=== PATIENT | female | born 1955 | race Caucasian/White ===

== ENCOUNTER 2017-06-02 11:14 | Day surgery (SDC) | payer OTHER ==
[~2017-06-02 11:14] MED LIST: LR 1,000 ML IV ONE
--- NOTE | 2017-06-02 11:54 | PDANEPAE ---
ANE History of Present Illness hx. polyps s/f colonscopy ANE Past Medical History - Cardiovascular History Hx Hypertension: No Hx Arrhythmias: No Hx Chest Pain: No Hx Coronary Artery / Peripheral Vascular Disease: No Hx CHF / Valvular Disease: No Hx Palpitations: No - Pulmonary History Hx COPD: No Hx Asthma/Reactive Airway Disease: No Hx Recent Upper Respiratory Infection: No Hx Oxygen in Use at Home: No Hx Sleep Apnea: No Sleep Apnea Screening Result - Last Documented: Negative Pulmonary History Comment: hx of pato- pt denies any pulmonary issues today - Neurologic History Hx Cerebrovascular Accident: No Hx Seizures: No Hx Dementia: No - Endocrine History Hx Diabetes: No - Renal History Hx Renal Disorders: No - Liver History Hx Hepatic Disorders: No - Neurological & Psychiatric Hx Hx Neurological and Psychiatric Disorders: No - Cancer History Hx Cancer: Yes Cancer History Comment: BASAL CELL REMOVED FACE - Congenital Disorder History Hx Congenital Disorders: No - GI History Hx Gastrointestinal Disorders: Yes Gastrointestinal History Comment: REMVL COLON POLYP. hx of colonoscopies - Other Health History Other Health History: none - Chronic Pain History Chronic Pain: No - Surgical History Prior Surgeries: COLONOSCOPY. eye surgery when she was young ANE Review of Systems Review of Systems: - Exercise capacity METS (RN): 4 METS ANE Patient History - Allergies Allergies/Adverse Reactions: amoxicillin trihydrate [From Augmentin] Allergy (Verified 05/20/17 11:57) extremely sick, n/v/d latex Allergy (Verified 05/20/17 11:57) breakout into hives potassium clavulanate [From Augmentin] Allergy (Verified 05/20/17 11:57) extremely sick, n/v/d - Home Medications Home medications: home medication list seen and reviewed Home Medications: Herbals/Supplements -Info Only 05/20/17 [Last Taken 05/25/17] - NPO status NPO Status: no food or drink >8 hours NPO Since - Liquids (Date): 06/01/17 NPO Since - Liquids (Time): 17:00 NPO Since - Solids (Date): 06/01/17 NPO Since - Solids (Time): 17:00 - Anes Hx Anes Hx: no prior problems (woke up with conscious sedation) - Smoking Hx Smoking Status: Heavy smoker Marijuana use: No - Alcohol Use Alcohol Use: Rarely - Family Anes Hx Family Hx Anesthesia Complications: PARENTS BOTH SLOW TO AWAKEN FROM ANESTH ANE Labs/Vital Signs - Vital Signs Height: 152.4 cm Weight: 68.039 kg ANE Physical Exam - Airway Mallampati Score: Class 1 Mouth exam: poor dentition - Pulmonary Pulmonary: no respiratory distress - Cardiovascular Cardiovascular: regular rate and rhythym - ASA Status ASA Status: I ANE Anesthesia Plan Anesthesia Plan: GA with mask (R/B/A explained and pt. agrees to proceed)
[2017-06-02] MEDS ORDERED: fentaNYL 100 MCG/2 ML INJ ONE (12:03)
--- NOTE | 2017-06-02 12:04 | PDGENHP ---
History & Physical Chief Complaint: cecal polyp History of Present Illness: 62 year old female presents for surveillance of cecal polyp Pertinent Past, Social, Family History: PMHx: ISAURA Relevant Physical Exam: HEENT: anicteric. Cv: RRR +s1s2. Lungs: CTAB. Abd: soft, nt, + bs Cardiorespiratory Assessment: ASA 3. Mall 2
[2017-06-02] MEDS ORDERED: PROPOFOL/EMULSION 500 MG/50 ML BOTTLE IV ONE (12:05)
[2017-06-02] MEDS ORDERED: INDOMETHACIN 50 MG SUPP PR PRN (12:05)
[2017-06-02] MEDS ORDERED: LIDOCAINE 2% 100 MG/5 ML SYR ONE (12:06)
[2017-06-02] MEDS ORDERED: NS 500 ML IV SCH (12:15)
[2017-06-02] MEDS ORDERED: ALBUTEROL 3 ML DEYVIAL IH PRN (12:40)
[2017-06-02] MEDS ORDERED: LR 500 ML IV PRN (12:40)
[2017-06-02] MEDS ORDERED: PHENYLEPHRINE HCL 100 MCG/ML SYR IVP PRN (12:40)
[2017-06-02] MEDS ORDERED: NALOXONE HCL 0.4 MG/ML INJ IVP PRN (12:40)
[2017-06-02] MEDS ORDERED: ACETAMINOPHEN 500 MG TAB PO PRN (12:40)
[2017-06-02] MEDS ORDERED: ONDANSETRON 4 MG/2 ML VIAL IVP PRN (12:40)
[2017-06-02] MEDS ORDERED: DEXAMETHASONE 4 MG/ML VIAL IVP PRN (12:40)
[2017-06-02] MEDS ORDERED: fentaNYL 100 MCG/2 ML INJ IVP PRN (12:40)
[2017-06-02] MEDS ORDERED: PROMETHAZINE HCL 25 MG/ML INJ IVP PRN (12:40)
--- NOTE | 2017-06-02 12:40 | POSTANESTH ---
Post Anesthetic Evaluation Cardiovascular Status: Normal, Stable Respiratory Status: Normal, Stable Level of Consciousness/Mental Status: Can Participate in Eval Pain Control: Adequate, Prn Tx Ordered Nausea/Vomiting Control: Adequate, Prn Tx Ordered Complications Possibly Related to Anesthesia: None Noted
[2017-06-02 13:07] VITALS: TEMP 97.3
--- NOTE | 2017-06-02 13:24 | GIREPORT ---
[facility] Surgical Services - Endoscopy Department Patient Name: Alisa Sales Procedure Date: 06/02/2017 11:17 AM Patient Type: Outpatient Attending MD/ ER Physician: Herbert Pittman MD Procedure: Colonoscopy Indications: High risk colon cancer surveillance: Personal history of colonic polyps Patient Profile: 62 year old female with a history of complex polyps presents for surveillance colonoscopy. Providers: Herbert Pittman MD Medicines: Monitored Anesthesia Care Complications: No immediate complications. Estimated blood loss: Minimal. Description of Procedure: After obtaining informed consent, the scope was passed under direct vis ion. Throughout the procedure, the patient's blood pressure, pulse, and oxyg en saturations were monitored continuously. The Colonoscope with irrigatio n channel was introduced through the anus and advanced to the cecum, identified by appendiceal orifice and ileocecal valve. The colonoscopy was performed without difficulty. The patient tolerated the procedure well. The quality of the bowel preparation was good. The ileocecal valve, appendi ceal orifice, and rectum were photographed. Findings: The perianal and digital rectal examinations were normal. Pertinent negatives include no palpable rectal lesions. Diverticula were found in the sigmoid colon and descending colon. A 5 mm polyp was found in the transverse colon. The polyp was sessile. The polyp was removed with a cold snare. Resection and retrieval were compl ete. Estimated Blood Loss: Estimated blood loss was minimal. Post Op Diagnosis: - Diverticulosis in the sigmoid colon and in the descending colon. - One 5 mm polyp in the transverse colon, removed with a cold snare. Resected and retrieved. Recommendation: - Discharge patient to home (with escort). - Resume previous diet. - Continue present medications. - Repeat colonoscopy in 3 years for surveillance. - Use fiber, for example Citrucel, Fibercon, Konsyl or Metamucil. - Await pathology results. - Thank you for allowing me to participate in the care of your patient. Attending Participation: I personally performed the entire procedure. Herbert Pittman MD Herbert Pittman MD 06/02/2017 1:23:39 PM This report has been signed electronicallyHerbert Pittman MD Number of Addenda: 0 Note Initiated On: 06/02/2017 11:17 AM Total Procedure Duration Time 0 hours 15 minutes 56 seconds [email or web address]
[2017-06-02 13:40] VITALS: BP 104/72; PULSE 75; RESP 17; O2SAT 100
== END 2017-06-02 14:00 | disposition home or self-care (01) ==
LOC: FSGY 11:14
PROVIDERS: ATTEND Internal Medicine Gastroenterology
PROC: 0DBL8ZZ Excision of Transverse Colon, Via Natural or Artificial Opening Endoscopic (ICD-10-PCS; principal; 2017-06-02 13:00)
DX: D12.3 Benign neoplasm of transverse colon (principal)
CPT/HCPCS: J2001; J2704; J3010